=== PATIENT | male | born 1995 | race Caucasian/White ===

== ENCOUNTER 2019-12-01 23:28 | Emergency (ER) | payer SELFPAY ==
[~2019-12-01] VITALS: Ht 167.6 cm; Wt 77.0 kg
[2019-12-02] MEDS ORDERED: SODIUM CHLORIDE 0.9% 1,000 ML IV ONE (00:45)
[2019-12-02 00:52] LABS: CHLORIDE 104 mEq/L (98-107)
[2019-12-02 00:55] LABS: BASOPHILS % 0.3 % (0.0-2.0); HEMATOCRIT. 47.8 % (42.0-52.0); LYMPHOCYTES % 14.7 % (20.0-50.0); MEAN CORPUSCULAR HEMOGLOBIN 28.8 pg (28.0-32.0); MEAN CORPUSCULAR VOLUME 85.9 fL (80.0-94.0); MEAN PLATELET VOLUME 7.7 fl (7.4-10.4); MONOCYTES % 8.9 % (2.0-8.0); NEUTROPHILS % 76.1 % (40.0-76.0); PLATELET 160 x1000/uL (130-400); RED BLOOD CELL COUNT 5.57 mill/uL (4.7-6.1)
[2019-12-02] MEDS ORDERED: KETOROLAC 30MG/ML VIAL IV ONE (01:00)
[2019-12-02 04:36] VITALS: BP 110/63
== END 2019-12-02 05:21 | disposition home or self-care (01) ==
LOC: ER 23:28
DX: U07.1 COVID-19 (principal); J06.9 Acute upper respiratory infection, unspecified
CPT/HCPCS: 36415; 71045; 80053; 83880; 84484; 85025; 93005; 96374; 99285; J1885; J7030